=== PATIENT | female | born 1950 | race Caucasian/White ===

== ENCOUNTER 2017-01-19 10:18 | Outpatient (CLI) | payer MEDICARE, OTHER ==
--- NOTE | 2017-01-22 15:50 | Mammography Report ---
DIGITAL SCREENING MAMMOGRAM: 01/19/2017 CLINICAL INDICATION: A 66-year-old, for screening. COMPARISON: The patient reports having had previous mammograms in [place]. Films are not yet availabl e for direct comparison. If they become available, an addendum will be issued. Comparison is made to report of previous mammogram and left breast ultrasound of 04/20/1999 and 05/12/1999. TECHNIQUE: Routine CC and MLO projections were obtained of the breasts. FINDINGS: The breasts demonstrate scattered fibroglandular densities bilaterally. Coarse, typically benign calcifications are present. A circumscribed nodule is seen in the left upper outer quadrant, m easuring 15 mm (previously an abnormality in the left upper outer quadrant was described as measuring 8 mm). There is a possible focus of architectural distortion in the right upper outer quadrant, and a retroareolar right breast nodule measuring 7 mm. If outside films cannot be located for direct comp arison, bilateral diagnostic mammogram and possible bilateral ultrasound is recommended. IMPRESSION: INCOMPLETE EXAMINATION. RECOMMENDATION: BILATERAL DIAGNOSTIC MAMMOGRAM AND POSSIBLE BILATERAL ULTRASOUNDS. BIRADS CATEGORY 0-INCOMPLETE. STANDARD QUALIFYING STATEMENTS 1. This examination was reviewed with the aid of Computer-Aided Detection (CAD). 2. A negative or benign imaging report should not delay biopsy if clinically suspicious findings are present. Consider surgical consultation if warranted. More than 5% of cancers are not identified by dominic mendes. 3. Dense breasts may obscure an underlying neoplasm. JOB #: [id number] EXT JOB #:[id number]
== END 2017-01-19 10:19 | disposition home or self-care (01) ==
LOC: DI.S 10:18
PROVIDERS: ATTEND Family Medicine Sports Medicine
DX: Z12.31 Encounter for screening mammogram for malignant neoplasm of breast (principal); N63.21 Unspecified lump in the left breast, upper outer quadrant; N63.41 Unspecified lump in right breast, subareolar; R92.8 Other abnormal and inconclusive findings on diagnostic imaging of breast
CPT/HCPCS: 77067

== ENCOUNTER 2017-02-26 10:29 | Outpatient (CLI) | payer MEDICARE ==
--- NOTE | 2017-02-26 13:06 | Ultrasound Report ---
RIGHT BREAST ULTRASOUND: 02/26/2017 CLINICAL INDICATION: Two mammographic abnormalities on diagnostic mammogram. TECHNIQUE: Real-time scanning was performed with sales representative printing paper static images obtained. FINDINGS: Ultrasound of the right retroareolar region and right upper outer quadrant was performed. In the periareolar 9 o'clock position, there is a hypoechoic nodule measuring 5 x 5 x 5 mm. It does demonstrate some posterior acoustic shadowing. The margins are minimally lobulated. At the 9:30 position of the right breast, approximately 8 cm from the nipple, there is a hypoechoic s hadowing 9 x 7 x 6 mm nodule, with associated peripheral vascularity. The appearance of both nodules is suspicious. Biopsy is recommended. Both nodules appear amenable t o ultrasound-guided core needle biopsy. IMPRESSION: SUSPICIOUS ABNORMALITIES, CORRELATING WITH THE MAMMOGRAPHIC ABNORMALITIES IN THE RIGHT R ETROAREOLAR BREAST AND RIGHT UPPER OUTER QUADRANT. RECOMMENDATION: Biopsy of both lesions. Both lesions appear amenable to ultrasound-guided core need le biopsy. BIRADS CATEGORY 4 - SUSPICIOUS ABNORMALITY. RESULTS AND RECOMMENDATIONS DISCUSSED WITH THE PATIENT AT THE TIME OF THE EXAMINATION, AND PRELIMINAR Y REPORT FAXED TO THE OFFICE OF DR. SHEA ON 02/26/2017. BIOPSIES ARE SCHEDULED FOR 03/19/2017. JOB #: [id number] EXT JOB #:[id number]
--- NOTE | 2017-02-26 13:12 | Mammography Report ---
DIGITAL DIAGNOSTIC BILATERAL MAMMOGRAM: 02/26/2017 CLINICAL INDICATION: Bilateral nodules. COMPARISON: 01/19/2017; films from [place], [place] dated 10/06/2010, 03/19/2007; report of previ ous ultrasound and mammogram of April 1999. TECHNIQUE: Bilateral true lateral and spot compression views. FINDINGS: Left breast: The circumscribed nodule in the left upper outer central breast has increased in size, now measuring approximately 1.5 cm. No associated calcifications are seen. Right breast: A 6-mm circumscribed nodule persists in the right retroareolar breast. In the right o uter central breast, a 1-cm parenchymal opacity, with ill-defined margins, persists. Please also ref er to bilateral breast ultrasound of the same day. IMPRESSION: SUSPICIOUS ABNORMALITIES, WITH THREE SOLID LESIONS IDENTIFIED ON ULTRASOUND, CORRELATING WITH THE THREE MAMMOGRAPHIC ABNORMALITIES. RECOMMENDATION: Biopsy of all three lesions. The lesions appear amenable to ultrasound-guided core- needle biopsy. BIRADS CATEGORY 4 - SUSPICIOUS ABNORMALITY. RESULTS AND RECOMMENDATIONS DISCUSSED WITH THE PATIENT AT THE TIME OF THE EXAMINATION, AND PRELIMINAR Y REPORT FAXED TO THE OFFICE OF DR. SHEA ON 02/26/2017. BIOPSY IS SCHEDULED FOR 03/19/2017 AT 10:30 A.M. JOB #: [id number] EXT JOB #:[id number]
--- NOTE | 2017-02-28 16:30 | Ultrasound Report ---
LEFT BREAST ULTRASOUND: 02/26/2017 CLINICAL INDICATION: Enlarging nodule on mammogram. TECHNIQUE: Real-time scanning was performed with medical field representative static images obtained. FINDINGS: Ultrasound of the left outer breast was performed. At the 2:30 position, 6 cm from the nipple, there is a mildly hypoechoic nodule, measuring 1.3 x 0.7 x 1.4 cm. The margins are mildly lobulated, and there is some internal vascularity. The appearance is suspicious. Biopsy is recommended. The nodule appears amenable to ultrasound-guided core needle biop sy. IMPRESSION: SUSPICIOUS ABNORMALITY, CORRELATING WITH THE MAMMOGRAPHIC ABNORMALITY IN THE LEFT BREAST . RECOMMENDATION: BIOPSY. THE NODULE APPEARS AMENABLE TO ULTRASOUND-GUIDED CORE NEEDLE BIOPSY. BIRADS CATEGORY 4-SUSPICIOUS ABNORMALITY. Results and recommendations discussed with the patient at the time of the examination, and preliminar y report faxed to the office of Dr. Mcintyre on 02/26/2017. Biopsies are scheduled for 03/19/2017. JOB #: [id number] EXT JOB #:[id number]
== END 2017-02-26 10:30 | disposition home or self-care (01) ==
LOC: DI 10:29
PROVIDERS: ATTEND Family Medicine Sports Medicine
DX: N63.11 Unspecified lump in the right breast, upper outer quadrant (principal); N63.41 Unspecified lump in right breast, subareolar; N63.21 Unspecified lump in the left breast, upper outer quadrant
CPT/HCPCS: 76642; G0204; 77066

== ENCOUNTER 2017-03-19 10:19 | Outpatient (CLI) | payer MEDICARE ==
[2017-03-19] MEDS ORDERED: BUFFERED LIDOCAINE 10 ML SYRINGE IU ONE (16:52)
[2017-03-19] MEDS ORDERED: BUPIVACAINE 0.25%-EPI 1:200000 PF 30 ML VIAL SUBQ ONE (16:52)
--- NOTE | 2017-03-20 11:23 | Ultrasound Report ---
REVISED: REPORT ORIG. SIGNED 03/20/2017@1151; REFERENCE ALSO ORDERS [id number], [id number], [id number] - 03/22/17jll LEFT BREAST ULTRASOUND-GUIDED CORE BIOPSY: 03/19/2017 CLINICAL HISTORY: Target mass measuring 1.2 x 0.7 x 1.3 cm, 2:30 position left breast, 6 cm from the nipple. Informed consent was obtained from the patient. Using standard aseptic technique, 1% buffered lidocaine and Sensorcaine were injected into the left breast for local anesthesia. A small skin nucj was made with a #11 blade. A 14 -gauge Achieve needle was used to obtain six core specimens under ultrasound guidance. Images documentation needle position within the mass. A DataStaxero clip was placed at the biopsy site, also under ultrasound guidance. A post procedure mammogram shows appropriate positioning of the clip with respect to the left breast mass. The patient tolerated the procedure well. The patient is scheduled for a followup visit with Dr. Mcintyre on 03/23/2017 at 10 :45 a.m. in [facility]. IMPRESSION: ULTRASOUND-GUIDED BIOPSY OF THE LEFT BREAST. An addendum will be made to this report when pathology is reviewed to establish concordance. JOB #: [id number] EXT JOB #: [id number] SOTO
--- NOTE | 2017-03-20 11:27 | Ultrasound Report ---
REVISED: REPORT ORIG. SIGNED 03/20/2017@1151; COMBINED ORDERS [phone] [id number] & [id number] - 03/22/2017 jll REFERENCE ALSO ORDERS [id number] [id number], [id number], ULTRASOUND-GUIDED NEEDLE BIOPSY OF TWO RIGHT BREAST MASSES: 03/19/2017 CLINICAL DATA Target #1: A 1 cm hypoechoic, irregularly marginated lesion, 9:30-position right breast, nipple +8 cm. Target #2: A 6 x 5 x 5 mm round, hypoechoic, mass, 9-o'clock position right periareolar breast. Informed consent was obtained from the patient. The lesions were both identified using ultrasound guided marking. Using standard technique, 1% buffered lidocaine and Sensorcaine were injected into the right breast for local anesthesia at both the 9:30-position nipple +8 cm and 9-o'clock periareolar position . Target #1. Using ultrasound guidance, a 14-gauge Achieve biopsy needle was introduced into the 9:30 N+8 target lesion and 7 passes were performed. Specimens were placed in preservative and sent to the lab for evaluation. A Celero clip was then placed at the biopsy site under ultrasound guidance. Target #2. Attention was then directed towards the 9:00 periareolar lesion. Ultrasound guidance was again used. 2 passes were performed with documentation of needle position. After the second pass, the lesion disappeared. A third pass through the area was made followed by placement of a Celero 2S biopsy clip. The patient was then taken to Mammography and a right mammogram performed which confirms appropriate positioning of the 2 biopsy clips with respect to the relative targets. The patient tolerated the procedure well. Patient is scheduled with Dr. Mcintyre at 10:45 a.m. at [facility] for follow-up. IMPRESSION: SUCCESSFUL ULTRASOUND-GUIDED CORE BIOPSY RIGHT BREAST X2. An addendum will be made to this report when pathology is reviewed to establish concordance. JOB #: [id number] EXT JOB #: [id number] SOTO
--- NOTE | 2017-03-20 11:29 | Ultrasound Report ---
REVISED: REPORT ORIG. SIGNED 03/20/2017@1151; ORDERS [id number] & [id number] COMBINED 03/22/2017 jll (below) REFERENCE ALSO ORDERS [id number], [id number] 03/22/17jll EXAM: [id number] US/BXBCEA ([id number]) ULTRASOUND-GUIDED NEEDLE BIOPSY OF TWO RIGHT BREAST MASSES: 03/19/2017 CLINICAL DATA Target #1: A 1 cm hypoechoic, irregularly marginated lesion, 9:30-position right breast, nipple +8 cm. Target #2: A 6 x 5 x 5 mm round, hypoechoic, mass, 9-o'clock position right periareolar breast. Informed consent was obtained from the patient. The lesions were both identified using ultrasound guided marking. Using standard technique, 1% buffered lidocaine and Sensorcaine were injected into the right breast for local anesthesia at both the 9:30-position nipple +8 cm and 9-o'clock periareolar position . Target #1. Using ultrasound guidance, a 14-gauge Achieve biopsy needle was introduced into the 9:30 N+8 target lesion and 7 passes were performed. Specimens were placed in preservative and sent to the lab for evaluation. A Celero clip was then placed at the biopsy site under ultrasound guidance. Target #2. Attention was then directed towards the 9:00 periareolar lesion. Ultrasound guidance was again used. 2 passes were performed with documentation of needle position. After the second pass, the lesion disappeared. A third pass through the area was made followed by placement of a Celero 2S biopsy clip. The patient was then taken to Mammography and a right mammogram performed which confirms appropriate positioning of the 2 biopsy clips with respect to the relative targets. The patient tolerated the procedure well. Patient is scheduled with Dr. Mcintyre at 10:45 a.m. at [facility] for follow-up. IMPRESSION: SUCCESSFUL ULTRASOUND-GUIDED CORE BIOPSY RIGHT BREAST X2. An addendum will be made to this report when pathology is reviewed to establish concordance. JOB #: [id number] EXT JOB #: [id number] SOTO
--- NOTE | 2017-03-21 14:50 | Mammography Report ---
REFERENCE ALSO ORDERS [id number], [id number], [id number] - 03/22/17j BILATERAL MAMMOGRAPHY: 03/19/2017 HISTORY: Status post bilateral ultrasound-guided core breast biopsies. Bilateral digital CC and MLO projections are performed and are compared to 01/19 and 02/26/2017. There is appropriate positioning of the biopsy clips with respect to the relative targets, two in the right breast, and one in the left breast. See separate ultrasound-guided breast core biopsy reports. STANDARD QUALIFYING STATEMENTS 1. This examination was reviewed with the aid of Computed-Aided Detection (CAD) . 2. A negative or benign imaging report should not delay biopsy if clinically suspicious findings are present. Consider surgical consultation if warranted. More than 5% of cancers are not identified by imaging. 3. Dense breasts may obscure an underlying neoplasm. EXAM: [id number] US/BXBC ([id number]) LEFT BREAST ULTRASOUND-GUIDED CORE BIOPSY: 03/19/2017 CLINICAL HISTORY: Target mass measuring 1.2 x 0.7 x 1.3 cm, 2:30 position left breast, 6 cm from the nipple. Informed consent was obtained from the patient. Using standard aseptic technique, 1% buffered lidocaine and Sensorcaine were injected into the left breast for local anesthesia. A small skin nucj was made with a #11 blade. A 14 -gauge Achieve needle was used to obtain six core specimens under ultrasound guidance. Images documentation needle position within the mass. A [employer] Celero clip was placed at the biopsy site, also under ultrasound guidance. A post procedure mammogram shows appropriate positioning of the clip with respect to the left breast mass. The patient tolerated the procedure well. The patient is scheduled for a followup visit with Dr. Mcintyre on 03/23/2017 at 10 :45 a.m. in [facility]. IMPRESSION: ULTRASOUND-GUIDED BIOPSY OF THE LEFT BREAST. An addendum will be made to this report when pathology is reviewed to establish concordance. EXAM: [id number] US/BXBCEA ([id number]) ULTRASOUND-GUIDED NEEDLE BIOPSY OF TWO RIGHT BREAST MASSES: 03/19/2017 CLINICAL DATA Target #1: A 1 cm hypoechoic, irregularly marginated lesion, 9:30-position right breast, nipple +8 cm. Target #2: A 6 x 5 x 5 mm round, hypoechoic, mass, 9-o'clock position right periareolar breast. Informed consent was obtained from the patient. The lesions were both identified using ultrasound guided marking. Using standard technique, 1% buffered lidocaine and Sensorcaine were injected into the right breast for local anesthesia at both the 9:30-position nipple +8 cm and 9-o'clock periareolar position . Target #1. Using ultrasound guidance, a 14-gauge Achieve biopsy needle was introduced into the 9:30 N+8 target lesion and 7 passes were performed. Specimens were placed in preservative and sent to the lab for evaluation. A Celero clip was then placed at the biopsy site under ultrasound guidance. Target #2. Attention was then directed towards the 9:00 periareolar lesion. Ultrasound guidance was again used. 2 passes were performed with documentation of needle position. After the second pass, the lesion disappeared. A third pass through the area was made followed by placement of a Celero 2S biopsy clip. The patient was then taken to Mammography and a right mammogram performed, which confirms appropriate positioning of the 2 biopsy clips with respect to the relative targets. The patient tolerated the procedure well. Patient is scheduled with Dr. Mcintyre at 10:45 a.m. at [facility] for follow-up. IMPRESSION: SUCCESSFUL ULTRASOUND-GUIDED CORE BIOPSY RIGHT BREAST X2. An addendum will be made to this report when pathology is reviewed to establish concordance. JOB #: [id number] EXT JOB #: [id number] [facility] SYSTEM[facility]
[2017-03-22 20:46] VITALS: BP 132/97
== END 2017-03-19 10:20 | disposition home or self-care (01) ==
LOC: DI 10:19
PROVIDERS: ATTEND Family Medicine
DX: C50.411 Malignant neoplasm of upper-outer quadrant of right female breast (principal); Z17.0 Estrogen receptor positive status [ER+]; D24.2 Benign neoplasm of left breast
CPT/HCPCS: 19083; 19084; 88305; 88360; G0204; 77066

== ENCOUNTER 2017-04-12 08:00 | Outpatient (CLI) | payer MEDICARE ==
[2017-04-12 18:53] LABS: BASOPHILS # (AUTO) 0.1 10^3/uL (0.0-0.1); BASOPHILS % (AUTO) 0.7 %; EOSINOPHILS # (AUTO) 0.2 10^3/uL (0.0-0.7); EOSINOPHILS % (AUTO) 1.8 %; HGB - HEMOGLOBIN 14.1 g/dL (12.0-16.0); LYMPHOCYTES # (AUTO) 2.6 10^3/uL (1.5-3.5); LYMPHOCYTES % (AUTO) 26.9 %; MEAN CORPUSCULAR HEMOGLOBIN 30.4 pg (27.0-31.0); MEAN CORPUSCULAR HGB CONC 32.8 g/dL (32.0-36.0); MEAN CORPUSCULAR VOLUME 92.8 fL (81.0-99.0); MONOCYTES # (AUTO) 0.6 10^3/uL (0.0-1.0); NEUTROPHILS # (AUTO) 6.2 10^3/uL (1.5-6.6); NEUTROPHILS % (AUTO) 64.6 %; PLT - PLATELET COUNT 222 10^3/uL (130-450); RED BLOOD COUNT 4.63 10^6/uL (4.20-5.40); WHITE BLOOD COUNT 9.6 x10^3/uL (4.8-10.8)
[2017-04-12 19:09] LABS: ALBUMIN 4.1 g/dL (3.2-5.5); ALBUMIN/GLOBULIN RATIO 1.5 (1.0-2.2); BILIRUBIN,TOTAL 0.8 mg/dL (0.2-1.0); CALCIUM 9.3 mg/dL (8.5-10.3); CREATININE 0.6 mg/dL (0.4-1.0); TOTAL PROTEIN 6.9 g/dL (6.7-8.2)
== END 2017-04-12 08:01 | disposition home or self-care (01) ==
LOC: LAB.F 08:00
PROVIDERS: ATTEND Specialist/Technologist, Other Surgical Technologist
DX: C50.911 Malignant neoplasm of unspecified site of right female breast (principal)
CPT/HCPCS: 36415; 80053; 85025

== ENCOUNTER 2017-07-08 19:17 | Emergency (ER) | payer MEDICARE ==
[2017-07-08] MEDS ORDERED: TETANUS/DIPHTHERIA/PERTUSSIS 0.5 ML SYRINGE IM ONE (19:55)
[2017-07-08] MEDS ORDERED: LIDOCAINE 1% 2 ML VIAL SUBQ STA (19:55)
--- NOTE | 2017-07-08 19:57 | ED Physician Documentation ---
PD HPI UPPER EXT INJURY - Stated complaint Stated Complaint: LT THUMB INJ - Chief complaint Chief Complaint: Laceration - History obtained from History obtained from: Patient - History of Present Illness Location: Other (Right-handed woman with unknown tetanus status presents with a cut on the left thumb from a green laird casserole can sustained at 6 PM tonight. ) Review of Systems Constitutional: reports: Reviewed and negative Throat: reports: Reviewed and negative Cardiac: reports: Reviewed and negative PD PAST MEDICAL HISTORY - Past Medical History Past Medical History: Yes Cardiovascular: High cholesterol Respiratory: Asthma, COPD Endocrine/Autoimmune: Other Other Past Medical History: Breast cancer - Past Surgical History Past Surgical History: Yes General: Cholecystectomy HEENT: Tonsil/Adenoidectomy - Allergies Allergies/Adverse Reactions: Allergies Allergy/AdvReac Type Severity Reaction Status Date / Time Penicillins Allergy Respiratory Verified 07/08/17 19:26 - Social History Does the pt smoke?: Yes Smoking Status: Current every day smoker Does the pt drink ETOH?: No Does the pt have substance abuse?: No - Immunizations Immunizations are current?: No Immunizations: TDAP >10years/unknown PD ED PE NORMAL - Vitals Vital signs reviewed: Yes - General General: Alert and oriented X 3, No acute distress - Extremities Extremities: Other (2cm lac on palmar surface of the Left thumb, oblique, mostly on the radial side, with normal neurovascular status at tip, tendon function will be assessed in lac note p anesthetic.) Results - Vitals Vitals: Vital Signs - 24 hr 07/08/17 19:22 Temperature 36.6 C Heart Rate 102 H Respiratory 18 Rate Blood Pressure 155/103 H O2 Saturation 94 Oxygen O2 Source Room air Procedures - Laceration (location) L thumb Length in cm: 2 Wound type: Linear Neurovascular status: Sensory intact, Motor intact, Vascular intact Tendon involvement: Tendon intact. No: Tendon Injury (good flexor tendon strength) Anesthesia: Lidocaine 1% Wound Preparation: Irrigated copiously NS Skin layer closure: Nylon, Size #-0 - enter number (5-0), Sutures - enter # (9) Other: Tetanus booster given Complexity: Simple Departure - Departure Disposition: 01 Home, Self Care Clinical Impression: Thumb laceration Qualifiers: Encounter type: initial encounter Damage to nail status: without damage Foreign body presence: without foreign body Laterality: left Qualified Code(s): S61.012A - Laceration without foreign body of left thumb without damage to nail , initial encounter Condition: Good Record reviewed to determine appropriate education?: Yes Instructions: ED Laceration Hand Comments: Come back for any signs of infection which would include: Redness, swelling, drainage, increased pain, or fevers. Follow-up with your physician in 10-14 days for suture removal. Your blood pressure was elevated today on check into the emergency department. This does not mean that you have hypertension, it is a common phenomenon to come to the emergency department and have elevated blood pressure. I recommend that you see your primary care physician within the week to have it rechecked when you are feeling better.
[2017-07-08 20:32] VITALS: BP 151/87
== END 2017-07-08 20:29 | disposition home or self-care (01) ==
LOC: ED 19:17
DX: S61.012A Laceration without foreign body of left thumb without damage to nail, initial encounter (principal); W26.8XXA Contact with other sharp object(s), not elsewhere classified, initial encounter; R03.0 Elevated blood-pressure reading, without diagnosis of hypertension; Z23 Encounter for immunization; E78.00 Pure hypercholesterolemia, unspecified; C50.919 Malignant neoplasm of unspecified site of unspecified female breast; F17.200 Nicotine dependence, unspecified, uncomplicated
CPT/HCPCS: 12001; 90471; 99283

== ENCOUNTER 2021-08-22 08:00 | Outpatient (CLI) | payer MEDICARE ==
[2021-08-22 20:41] LABS: BILIRUBIN,URINE NEGATIVE (NEGATIVE); GLUCOSE, URINE (UA) NEGATIVE (NEGATIVE); KETONES,URINE (UA) NEGATIVE (NEGATIVE); LEUKOCYTE ESTERASE, URINE NEGATIVE (NEGATIVE); NITRITE,URINE NEGATIVE (NEGATIVE); OCCULT BLOOD,URINE NEGATIVE (NEGATIVE); PROTEIN,URINE NEGATIVE (NEGATIVE); UROBILINOGEN,URINE 0.2 (NORMAL) E.U./dL (NORMAL)
[2021-08-22 20:44] LABS: CLARITY,URINE CLEAR (CLEAR)
[2021-08-22 20:54] LABS: BACTERIA,URINE None Seen /HPF (None Seen); RBC,URINE 0-5 /HPF (0-5); SQUAMOUS EPITHELIAL CELL,UR RARE Squamous (<= Few); WBC,URINE 0-3 /HPF (0-5)
[2021-08-22 22:15] LABS: BACTERIAL VAGINOSIS DNA NEGATIVE (NEGATIVE); CANDIDA GLABRATA DNA NEGATIVE (NEGATIVE); CANDIDA GROUP DNA POSITIVE (NEGATIVE); CANDIDA KRUSEI DNA NEGATIVE (NEGATIVE); TRICHOMONAS VAGINALIS DNA NEGATIVE (NEGATIVE)
== END 2021-08-22 23:59 | disposition home or self-care (01) ==
LOC: LAB.S 08:00
PROVIDERS: ATTEND Physician Assistant Medical
DX: L29.8 Other pruritus (principal); R10.84 Generalized abdominal pain; R19.7 Diarrhea, unspecified
CPT/HCPCS: 81001; 81514; 82962; 87086

== ENCOUNTER 2022-05-02 08:00 | Outpatient (CLI) | payer MEDICARE ==
[2022-05-02 20:38] LABS: BILIRUBIN,URINE NEGATIVE (NEGATIVE); GLUCOSE, URINE (UA) NEGATIVE (NEGATIVE); KETONES,URINE (UA) NEGATIVE (NEGATIVE); LEUKOCYTE ESTERASE, URINE NEGATIVE (NEGATIVE); NITRITE,URINE NEGATIVE (NEGATIVE); OCCULT BLOOD,URINE NEGATIVE (NEGATIVE); PROTEIN,URINE NEGATIVE (NEGATIVE); UROBILINOGEN,URINE 0.2 (NORMAL) E.U./dL (NORMAL)
[2022-05-02 20:42] LABS: CLARITY,URINE CLEAR (CLEAR)
== END 2022-05-02 23:59 | disposition home or self-care (01) ==
LOC: LAB.R 08:00
PROVIDERS: ATTEND Family Medicine
DX: N39.0 Urinary tract infection, site not specified (principal)
CPT/HCPCS: 81003

== ENCOUNTER 2022-05-07 11:34 | Outpatient (CLI) | payer MEDICARE | END 2022-05-07 11:35 | disposition critical access hospital (66) | LOC: EMS 11:34 | DX: R06.03 Acute respiratory distress (principal); Z99.81 Dependence on supplemental oxygen; J44.9 Chronic obstructive pulmonary disease, unspecified | CPT/HCPCS: A0425; A0427 ==

== ENCOUNTER 2022-05-07 12:09 | Emergency (ER) | payer MEDICARE ==
[2022-05-07] MEDS ORDERED: IPRATROPIUM/ALBUTEROL 3 ML NEB INH STA (12:30)
--- NOTE | 2022-05-07 12:33 | ED Physician Documentation ---
PD HPI DYSPNEA - Stated complaint Stated Complaint: SOA - Chief complaint Chief Complaint: Resp - History obtained from History obtained from: Patient - History of Present Illness Pain level max: 0 Pain level now: 0 - Additional information Additional information: Patient is a 72-year-old female who presents to the emergency department with dyspnea. History of COPD. Increasing difficulty breathing at home today. She is usually on prednisone 10 mg by mouth daily. She received a albuterol treatment and Solu-Medrol with EMS. She states she is currently feeling better and breathing easier. She is on 3 L of nasal cannula home O2 06/11. She was on hospice but revoked hospice this morning. No fevers. No chills. Chronic, dry, cough unchanged. Review of Systems Constitutional: denies: Fever, Chills Respiratory: denies: Cough GI: denies: Vomiting, Diarrhea Skin: denies: Rash Musculoskeletal: denies: Neck pain, Back pain Neurologic: denies: Headache PD PAST MEDICAL HISTORY - Past Medical History Cardiovascular: High cholesterol Respiratory: Asthma, COPD Endocrine/Autoimmune: Other - Past Surgical History Past Surgical History: Yes General: Cholecystectomy HEENT: Tonsil/Adenoidectomy - Present Medications Home Medications: Ambulatory Orders Medication Instructions Recorded Confirmed Albuterol Sulf [Ventolin Hfa 1 - 2 puffs INH Q4HR PRN #1 each 05/07/22 Inhaler] Fluticasone/Umeclidin/Vilanter 1 each IH DAILY #1 kit 05/07/22 [Trelegy Ellipta 100-62.5-25] predniSONE [Deltasone] 10 mg PO [id number] #42 tab 05/07/22 - Allergies Allergies/Adverse Reactions: Allergies Allergy/AdvReac Type Severity Reaction Status Date / Time Penicillins Allergy Respiratory Verified 07/08/17 19:26 - Social History Does the pt smoke?: Yes Smoking Status: Current every day smoker Does the pt drink ETOH?: No Does the pt have substance abuse?: No - Immunizations Immunizations are current?: No Immunizations: TDAP >10years/unknown PD ED PE NORMAL - Vitals Vital signs reviewed: Yes - General General: Alert and oriented X 3, No acute distress - HEENT HEENT: Moist mucous membranes - Neck Neck: Supple, no meningeal sign - Cardiac Cardiac: RRR, No murmur, Strong equal pulses - Respiratory Respiratory: Other (Wheezing bilaterally) - Abdomen Abdomen: Soft, Non tender, Non distended - Derm Derm: Warm and dry - Extremities Extremities: No edema, No calf tenderness / cord - Neuro Neuro: Alert and oriented X 3 - Psych Psych: Normal mood, Normal affect Results - Vitals Vitals: Vital Signs - 24 hr 05/07/22 05/07/22 05/07/22 12:22 12:50 14:25 Temperature 36.6 C Heart Rate 98 88 88 Respiratory 22 20 15 Rate Blood Pressure 137/70 H 120/65 O2 Saturation 96 97 If not protocol 3 : Oxygen Flow, liters/minute 05/07/22 05/07/22 15:25 15:26 Temperature Heart Rate 99 84 Respiratory 24 18 Rate Blood Pressure 144/74 H O2 Saturation 95 If not protocol 3 : Oxygen Flow, liters/minute Oxygen O2 Source Nasal cannula Oxygen Flow Rate 3 - Labs Labs: Laboratory Tests 05/07/22 05/07/22 05/07/22 12:41 12:41 13:44 WBC 12.8 H RBC 4.09 L Hgb 12.2 Hct 38.9 MCV 95.1 MCH 29.8 MCHC 31.4 L RDW 12.8 Plt Count 277 MPV 8.8 Neut # (Auto) 10.8 H Lymph # (Auto) 1.2 L Fleming # (Auto) 0.3 Eos # (Auto) 0.3 Baso # (Auto) 0.1 Absolute Nucleated RBC 0.00 Nucleated RBC % 0.0 Sodium 135 Potassium 3.5 Chloride 98 L Carbon Dioxide 28 Anion Gap 9.0 BUN 12 Creatinine 0.9 Estimated GFR (MDRD) 61 L Glucose 202 H Calcium 8.8 Total Bilirubin 0.5 AST 20 ALT 23 Alkaline Phosphatase 45 Total Protein 6.6 L Albumin 3.6 Globulin 3.0 Albumin/Globulin Ratio 1.2 Nasal Adenovirus (PCR) NOT DETECTED Nasal B. parapertussis DNA (PCR) NOT DETECTED Nasal Coronavir 229E PCR NOT DETECTED Nasal Coronavir HKU1 PCR NOT DETECTED Nasal Coronavir NL63 PCR NOT DETECTED Nasal Coronavir OC43 PCR NOT DETECTED Nasal Enterovir/Rhinovir PCR NOT DETECTED Nasal Influenza B PCR NOT DETECTED Nasal Influenza A PCR NOT DETECTED Nasal Parainfluen 1 PCR NOT DETECTED Nasal Parainfluen 2 PCR NOT DETECTED Nasal Parainfluen 3 PCR NOT DETECTED Nasal Parainfluen 4 PCR NOT DETECTED Nasal RSV (PCR) NOT DETECTED Nasal B.pertussis DNA PCR NOT DETECTED Nasal C.pneumoniae (PCR) NOT DETECTED Darrell Human Metapneumo PCR NOT DETECTED Nasal M.pneumoniae (PCR) NOT DETECTED Nasal SARS-CoV-2 (PCR) NOT DETECTED - Rads (name of study) Chest x-ray Radiology: Final report received, See rad report (No acute abnormality) PD Medical Decision Making - ED course Complexity details: reviewed results, re-evaluated patient, considered differential, d/w patient Reviewed Lab Results: Patient is stable on her home oxygen. She has a mildly elevated white blood cell count but is on chronic steroids. Her CMP does not show any significant abnormalities other than a mildly elevated glucose. Respiratory PCR is negative. ED course: 72-year-old female with COPD exacerbation. No fevers. No indication for antibiotics. She was given Solu-Medrol by EMS. Will place on a prednisone taper for home. The chest x-ray shows mild reactive airway disease. No evidence of pneumonia. Patient does live at home and her daughter lives across the street from her. They were given resources for in-home caregivers and assisted living facilities. They will follow-up with her doctor for further care. We will place the patient on Trelegy for home as well. Patient and family counseled regarding signs and symptoms for which I believe and urgent re- evaluation would be necessary. Patient with good understanding of and agreement to plan and is comfortable going home at this time This document was made in part using voice recognition software. While efforts are made to proofread this document, sound alike and grammatical errors may occur. Departure - Departure Disposition: 01 Home, Self Care Clinical Impression: COPD exacerbation Condition: Good Instructions: ED COPD Flare Follow-Up: VALERIE GORDON MD [Primary Care Provider] - Tomorrow Prescriptions: Albuterol Sulf [Ventolin Hfa Inhaler] 1 - 2 puffs INH Q4HR PRN #1 each PRN Reason: Shortness Of Air/Wheezing predniSONE [Deltasone] 10 mg PO [id number] #42 tab Fluticasone/Umeclidin/Vilanter [Trelegy Ellipta 100-62.5-25] 1 each IH DAILY #1 kit Comments: Your prescriptions were sent to [facility] in [place]. Please use the medications as prescribed. Please follow-up with your doctor for further care. I would recommend looking into a time to medication box for home as well to help her keep track of her medications. Discharge Date/Time: 05/07/22 15:56
--- NOTE | 2022-05-07 12:46 | XRAY Report ---
PROCEDURE: Chest 1 View X-Ray INDICATIONS: dyspnea, wheezing TECHNIQUE: One view of the chest was acquired. COMPARISON: None. FINDINGS: Surgical changes and devices: None. Lungs and pleura: No pleural effusions or pneumothorax. Mildly increased bronchovascular markings in bilateral hilar region are seen with mild bronchial wall thickening. No definite focal infiltrate.. Mediastinum: Mediastinal contours appear normal. Heart size is enlarged. Bones and chest wall: No suspicious bony lesions. Overlying soft tissues appear unremarkable. IMPRESSION: Suggestion of mild reactive airway disease such as bronchiolitis or viral illness. No definite focal infiltrate. No pleural effusion or pneumothorax. Reviewed by: Urbano Armenta MD on 05/07/2022 12:45 PM PST Approved by: Urbano Armenta MD on 05/07/2022 12:45 PM PST Station ID: [id number]
[2022-05-07 12:49] LABS: BASOPHILS # (AUTO) 0.1 10^3/uL (0.0-0.1); BASOPHILS % (AUTO) 0.6 %; EOSINOPHILS # (AUTO) 0.3 10^3/uL (0.0-0.7); EOSINOPHILS % (AUTO) 2.4 %; HCT - HEMATOCRIT 38.9 % (37.0-47.0); HGB - HEMOGLOBIN 12.2 g/dL (12.0-16.0); LYMPHOCYTES # (AUTO) 1.2 10^3/uL (1.5-3.5); LYMPHOCYTES % (AUTO) 9.6 %; MEAN CORPUSCULAR HEMOGLOBIN 29.8 pg (27.0-31.0); MEAN CORPUSCULAR HGB CONC 31.4 g/dL (32.0-36.0); MEAN CORPUSCULAR VOLUME 95.1 fL (81.0-99.0); MEAN PLATELET VOLUME 8.8 fL (7.9-10.8); MONOCYTES # (AUTO) 0.3 10^3/uL (0.0-1.0); MONOCYTES % (AUTO) 2.3 %; NEUTROPHILS # (AUTO) 10.8 10^3/uL (1.5-6.6); NEUTROPHILS % (AUTO) 84.6 %; PLT - PLATELET COUNT 277 10^3/uL (130-450); RED BLOOD COUNT 4.09 10^6/uL (4.20-5.40); RED CELL DISTRIBUTION WIDTH 12.8 % (12.0-15.0); WHITE BLOOD COUNT 12.8 x10^3/uL (4.8-10.8)
[2022-05-07 13:08] LABS: ALBUMIN 3.6 g/dL (3.2-5.5); ALBUMIN/GLOBULIN RATIO 1.2 (1.0-2.2); BILIRUBIN,TOTAL 0.5 mg/dL (0.2-1.0); CALCIUM 8.8 mg/dL (8.5-10.3); CREATININE 0.9 mg/dL (0.4-1.0); POTASSIUM 3.5 mmol/L (3.5-5.0); TOTAL PROTEIN 6.6 g/dL (6.7-8.2)
[2022-05-07] MEDS ORDERED: LORazepam 2 MG/ML VIAL IVP STA (14:18)
[2022-05-07] MEDS ORDERED: HYDROmorphone 0.5 MG/0.5 ML SYRINGE IVP STA (14:19)
[2022-05-07 14:51] LABS: B. PARAPERTUSSIS- RESP PCR PAN NOT DETECTED; B. PERTUSSIS- RESP PCR PANEL NOT DETECTED; C. PNEUMONIAE- RESP PCR PANEL NOT DETECTED; CORONAVIRUS 229E-RESP PCR NOT DETECTED; CORONAVIRUS HKU1-RESP PCR NOT DETECTED; CORONAVIRUS NL63-RESP PCR NOT DETECTED; CORONAVIRUS OC43-RESP PCR NOT DETECTED; HUMAN METAPNEUMOVIRUS NOT DETECTED; INFLUENZA A- RESP PCR PANEL NOT DETECTED; INFLUENZA B - RESP PCR PANEL NOT DETECTED; M. PNEUMONIAE- RESP PCR PANEL NOT DETECTED; PARAINFLUENZA VIRUS 1 NOT DETECTED; PARAINFLUENZA VIRUS 2 NOT DETECTED; PARAINFLUENZA VIRUS 3 NOT DETECTED; PARAINFLUENZA VIRUS 4 NOT DETECTED; RHINOVIRUS/ENTEROVIRUS NOT DETECTED; RSV- RESP PCR PANEL NOT DETECTED; SARS-CoV-2 -RESP PCR PANEL NOT DETECTED
[2022-05-07] MEDS ORDERED: ALBUTEROL NEB 2.5 MG/3 ML INH STA (15:07)
[2022-05-07 15:27] VITALS: BP 144/74
== END 2022-05-07 15:56 | disposition home or self-care (01) ==
LOC: EDUNIT# → ED 12:09
DX: J44.1 Chronic obstructive pulmonary disease with (acute) exacerbation (principal); Z99.81 Dependence on supplemental oxygen; F17.200 Nicotine dependence, unspecified, uncomplicated; Z20.822 Contact with and (suspected) exposure to COVID-19
CPT/HCPCS: 36415; 71045; 80053; 85025; 87633; 94640; 94664; 96374; 99284; J1170; J2060